=== PATIENT | female | born 1995 | race Caucasian/White ===

== ENCOUNTER → 2022-03-15 | Outpatient (CLI) | payer MEDICARE ==
[~2022-03-15] MED LIST: CLIN-62 PO; CLN.1T PO; HYDR15SO6 PO; LMT25T PO; OMEP20CA12 PO; ONDA4TAB8 PO; SERT50TA PO; trazodone PO
--- NOTE | 2022-03-15 09:05 | Diagnostic Imaging Report ---
PROCEDURE: US Gallbladder. TECHNIQUE: Multiple real-time grayscale images were obtained over the right upper quadrant in various projections. INDICATION: Epigastric pain. FINDINGS: Examination is technically limited as the patient could not follow breathing instructions or hold still. Liver is grossly normal in size without focal lesions. There is hepatopetal flow in the main portal vein. There is no intrahepatic biliary ductal dilatation. Common bile duct, pancreas, aorta and IVC were all obscured due to bowel gas. There is no cholelithiasis, gallbladder wall thickening or pericholecystic fluid. Right kidney is normal. No ascites. IMPRESSION: Limited exam as described. Gallbladder is grossly normal in appearance. There is no cholelithiasis, gallbladder wall thickening or pericholecystic fluid. Dictated by: Dictated on workstation # [id number]
== END ==
LOC: RAD 07:39
PROVIDERS: ATTEND Surgery
DX: R10.13 Epigastric pain (principal)
CPT/HCPCS: 76705

== ENCOUNTER → 2022-03-24 | Outpatient (CLI) | payer MEDICARE ==
[~2022-03-24] VITALS: Ht 154.9 cm; Wt 55.8 kg
[~2022-03-24] MED LIST changes: +OMEP20TA56 PO; +ONDA4TAB11 PO; +PROM25TA14 PO; +SUCR1TAB36 PO
== END ==
LOC: PREOP 11:23
PROVIDERS: ATTEND Surgery
DX: Z01.818 Encounter for other preprocedural examination (principal); R11.2 Nausea with vomiting, unspecified

== ENCOUNTER 2022-03-25 07:27 | Day surgery (SDC) | payer MEDICARE ==
[~2022-03-25] VITALS: Ht 154.9 cm; Wt 55.8 kg
[2022-03-25] MEDS ORDERED: LACTATED RINGERS 1,000 ML IV STA (07:36)
[2022-03-25] MEDS ORDERED: proPOfol 200 MG/20 ML (DIPRIVAN) VIAL IV ONE (07:42)
[2022-03-25] MEDS ORDERED: MIDAZOLAM 2 MG/2 ML (VERSED) VIAL ONE (07:42)
[2022-03-25] MEDS ORDERED: HURRICAINE EXT TUBE (BENZOCAINE) XX PRN (07:45)
[2022-03-25 07:53] VITALS: BP 163/106
--- NOTE | 2022-03-25 09:00 | Progress Note-Pre Operative ---
Pre-Operative Progress Note Date of Available H&P: Mar 10, 2022 Date H&P Reviewed: Mar 25, 2022 Time H&P Reviewed: 08:56 History & Physical: H&P Reviewed, Patient Examed, No changes noted Pre-Operative Diagnosis: Epigastric pain, weight loss, malnourished CAMRON ROBERTS DO Mar 25, 2022 09:00
[2022-03-25 09:18] VITALS: BP 87/52
[2022-03-25 09:23] VITALS: BP 124/79
[2022-03-25 09:30] VITALS: BP 124/79
--- NOTE | 2022-03-25 09:31 | Anesthesia-General Post-Op ---
MAC Patient Condition Mental Status/LOC: Same as Preop Cardiovascular: Satisfactory Nausea/Vomiting: Absent Respiratory: Satisfactory Pain: Controlled Complications: Absent Post Op Complications Complications None Follow Up Care/Instructions Patient Instructions None needed. Anesthesiology Discharge Order Discharge Order Patient is doing well, no complaints, stable vital signs, no apparent adverse anesthesia problems. No complications reported per nursing. YURI MABRY CRNA Mar 25, 2022 09:31
--- NOTE | 2022-03-25 09:33 | Progress Note-Post Operative ---
Post-Operative Progess Note Surgeon (s)/Air/Ocean Export Clerk (s) Surgeon CAMRON ROBERTS DO Air/Ocean Export Clerk: none Pre-Operative Diagnosis Epigastric pain, weight loss, malnourished Post-Operative Diagnosis Gastritis Small sliding hiatal hernia Procedure & Operative Findings Date of Procedure 03/25/22 Procedure Performed/Findings EGD with bx PROCEDURE NOTE: After informed consent was obtained, the patient was brought to the endoscopy suite, placed in bed in left lateral decubitus position. She was administered IV sedation by the OPERATOR [employer] who then monitored vitals the entire time, heart rate, blood pressure and pulse ox and the scope was inserted down the mouth through the esophagus into the stomach. Pushed into the stomach, noted some gastritis and pushed past the antrum into the duodenum. Duodenum looked good. Pulled back and did a biopsy of antrum, then retroflexed the scope, saw a very small sliding hiatal hernia (could see GE junction coming in and out), took a picture of this and then pulled the scope into the GE junction, and then did a biopsy of the GE junction. Pushed the scope back into the stomach, suctioned all the air out of the stomach. At this point pulled the scope up the esophagus and out the mouth. The patient tolerated the procedure, and she recovered in endoscopy suite. Anesthesia Type IV sedation by [employer] Estimated Blood Loss Estimated blood loss (mL): scant Specimens/Packing Specimens Removed antral bx body of stomach bx GE jxn bx CAMRON ROBERTS DO Mar 25, 2022 09:33
--- NOTE | 2022-03-25 09:34 | Endoscopy Discharge Instruct ---
Endo Procedure/Findings Findings 1.: Gastritis 2.: Hiatal Hernia Discharge Instructions - Activity: You might feel a little sleepy until tomorrow. This is due to the medicine you received to relax you. Until tomorrow, you should: NOT drive a car, operate machinery or power tools. NOT drink any alcoholic beverages. NOT make any important decisions or sign importortant papers. Do not return to work until tomorrow, unless otherwise instructed. Resume previous activities tomorrow. Diet: Start by taking liquids. If you tolerate liquids, advance to solid food. 1.: EGD in 3 years Notify Physician - If you experience excessive bleeding, unusual abdominal pain, fever, or chest pain, contact your doctor immediately. CAMRON ROBERTS DO Mar 25, 2022 09:34
[2022-03-25 09:55] VITALS: BP 124/79
== END 2022-03-25 09:59 | disposition home or self-care (01) ==
LOC: ENDO 07:27
PROVIDERS: ATTEND Surgery
DX: K29.70 Gastritis, unspecified, without bleeding (principal); K44.9 Diaphragmatic hernia without obstruction or gangrene; K20.90 Esophagitis, unspecified without bleeding; H54.8 Legal blindness, as defined in USA; R62.59 Other lack of expected normal physiological development in childhood; F84.0 Autistic disorder; Z79.899 Other long term (current) drug therapy; Z86.19 Personal history of other infectious and parasitic diseases
CPT/HCPCS: 84703; 88305

== ENCOUNTER 2022-04-01 11:28 | Day surgery (SDC) | payer MEDICARE ==
[2022-04-01] MEDS ORDERED: MIDAZOLAM 2 MG/2 ML (VERSED) VIAL ONE ×2 (12:08→12:15)
[2022-04-01] MEDS ORDERED: MIDAZOLAM 2 MG/2 ML (VERSED) VIAL IV ONE (12:15)
[2022-04-01 13:27] VITALS: BP 130/97
--- NOTE | 2022-04-01 13:29 | Anesthesia-Procedure Note ---
Procedures/Interventions Procedure Start/Stop/Diagnosis Date of Procedure: Apr 01, 2022 Start Time: 12:31 Brief History Patient [place] [facility] [place] a LP. CT obtained which was negative, as well as a normal platelet count. Procedure explained to the patient and her parents and a consent was obtained. 24g IV started to patient's left hand and a total of versed 4mg given throughout the procedure. Patient's back was sterile prepped and draped with 2cc Lidocaine for numbing. 25g 3.5 inch Pencan needle used to locate CSF easily. Opening pressure measured at 9 mm Hg. CSF clear. A total of 2-3 cc of CSF obtained in each of 4 vials. Needle removed from patient's back. Patient assisted supine and given support. Stop Time: 13:11 ELADIA BENITES CRNA Apr 01, 2022 13:29
[2022-04-01] MEDS ORDERED: MIDAZOLAM 2 MG/2 ML (VERSED) VIAL IVP ONE (13:30)
[2022-04-01 15:40] LABS: CSF GLUCOSE 58 MG/DL (50-80)
[2022-04-01 16:13] LABS: CSF TOTAL PROTEIN 29 MG/DL (15-40)
[2022-04-01 16:34] LABS: APPEARANCE,CSF CLEAR; COLOR,CSF COLORLESS; CSF TUBE NUMBER 4
== END 2022-04-01 13:15 | disposition home or self-care (01) ==
LOC: SDC 11:28
PROVIDERS: ATTEND Anesthesiology
DX: E46 Unspecified protein-calorie malnutrition (principal); R63.4 Abnormal weight loss; G93.2 Benign intracranial hypertension
CPT/HCPCS: 82945; 83605; 84157; 87070; 87205; 89051; 96374; 96376